=== PATIENT | female | born 1985 | race Two or more races ===

== ENCOUNTER 2019-06-25 18:59 | Inpatient (IN) | payer SELFPAY ==
[~2019-06-25] VITALS: Ht 160 cm; Wt 61.7 kg
[2019-06-25] MEDS ORDERED: ALBUTEROL 6.7GM HFA INHALER ORI ONE (19:30)
[2019-06-25] MEDS ORDERED: PREDNISONE 20MG TABLET PO ONE (19:30)
[2019-06-25] MEDS ORDERED: ACETAMINOPHEN 325MG TABLET PO ONE (19:30)
[2019-06-25] MEDS ORDERED: AZITHROMYCIN 500 MG TABLET PO ONE (20:15)
[2019-06-25] MEDS ORDERED: CEFTRIAXONE 1 G PREMIX 50 ML IV ONE (20:15)
[2019-06-25 21:52] LABS: BASOPHILS % 0.2 % (0.0-2.0); HEMATOCRIT. 39.5 % (36.0-48.0); HEMOGLOBIN. 13.7 g/dL (12.0-16.0); LYMPHOCYTES % 15.1 % (20.0-50.0); MEAN CORPUSCULAR HEMOGLOBIN 29.7 pg (28.0-32.0); MEAN CORPUSCULAR VOLUME 85.5 fL (81.0-99.0); MEAN PLATELET VOLUME 7.5 fl (7.4-10.4); MONOCYTES % 5.4 % (2.0-8.0); NEUTROPHILS % 79.3 % (40.0-76.0); PLATELET 274 x1000/uL (130-400); RED BLOOD CELL COUNT 4.62 mill/uL (4.2-5.4); RED CELL DISTRIBUTION WIDTH 13.7 % (11.6-14.6)
[2019-06-25 21:55] LABS: CHLORIDE 107 mEq/L (98-107)
[2019-06-25 22:20] LABS: D-DIMER 0.47 mg/L FEU (<0.50)
[2019-06-26 08:27] LABS: CLARITY URINE CLEAR (CLEAR); COLOR URINE DARK YELLOW (YELLOW); KETONES URINE 3+ (NEGATIVE); LEUKOCYTE ESTERASE URINE NEGATIVE (NEGATIVE); NITRITE URINE NEGATIVE (NEGATIVE); OCCULT BLOOD URINE 3+ (NEGATIVE); PH URINE 5.5 (4.5-8.0); PROTEIN URINE 2+ (NEGATIVE); SPECIFIC GRAVITY URINE 1.036 (1.005-1.030)
[2019-06-26] MEDS ORDERED: BENZONATATE 100MG CAPSULE PO PRN (09:15)
[2019-06-26] MEDS ORDERED: CEFTRIAXONE 1 G PREMIX 50 ML IV SCH ×2 (09:15→20:00)
[2019-06-26 10:54] VITALS: BP 133/78
[2019-06-26 12:00] VITALS: BP 108/60
[2019-06-26] MEDS ORDERED: AZIT250T12 MT (13:43)
[2019-06-26] MEDS: AZITHROMYCIN 250 MG TABLET PO SCH (14:18)
[2019-06-26 16:00] VITALS: BP 102/56
[2019-06-26] MEDS: ACETAMINOPHEN 325MG TABLET PO PRN ×2 (16:47→22:18)
[2019-06-26] MEDS: ENOXAPARIN 40MG/0.4ML SYR SUBCUT SCH (16:47)
[2019-06-26] MEDS: ALBUTEROL 6.7GM HFA INHALER ORI SCH (18:30)
[2019-06-26 19:54] LABS: HCG SCREEN NEGATIVE
[2019-06-26 20:00] VITALS: BP 125/70
[2019-06-26] MEDS: CEFTRIAXONE 1,000 MG in DEXTROSE 5% WATER 50 ML IV SCH (20:00)
[2019-06-27] VITALS: BP 94/61
[2019-06-27] MEDS: ALBUTEROL 6.7GM HFA INHALER ORI SCH ×4 (00:26→17:04)
[2019-06-27 04:00] VITALS: BP 102/68
[2019-06-27 08:00] VITALS: BP 97/59
[2019-06-27] MEDS: ENOXAPARIN 40MG/0.4ML SYR SUBCUT SCH (08:56)
[2019-06-27] MEDS: AZITHROMYCIN 250 MG TABLET PO SCH (08:56)
[2019-06-27] MEDS ORDERED: AZITHROMYCIN 500 MG TABLET PO SCH (09:00)
[2019-06-27 12:00] VITALS: BP 100/59
[2019-06-27] MEDS: ACETAMINOPHEN 325MG TABLET PO PRN (12:30)
[2019-06-27 16:00] VITALS: BP 94/63
[2019-06-27 20:00] VITALS: BP 97/59
[2019-06-27] MEDS: CEFTRIAXONE 1,000 MG in DEXTROSE 5% WATER 50 ML IV SCH (21:42)
[2019-06-28] VITALS: BP 98/58
[2019-06-28] MEDS: ALBUTEROL 6.7GM HFA INHALER ORI SCH ×2 (00:56→05:06)
[2019-06-28 04:00] VITALS: BP 100/60
[2019-06-28 06:54] LABS: BASOPHILS % 0.6 % (0.0-2.0); EOSINOPHILS % 0.4 % (0.0-5.0); HEMATOCRIT. 39.8 % (36.0-48.0); HEMOGLOBIN. 13.5 g/dL (12.0-16.0); LYMPHOCYTES % 36.4 % (20.0-50.0); MEAN CORPUSCULAR HEMOGLOBIN 28.8 pg (28.0-32.0); MONOCYTES % 12.9 % (2.0-8.0); NEUTROPHILS % 49.7 % (40.0-76.0); PLATELET 360 x1000/uL (130-400); RED BLOOD CELL COUNT 4.68 mill/uL (4.2-5.4); RED CELL DISTRIBUTION WIDTH 13.6 % (11.6-14.6)
[2019-06-28 07:01] LABS: CHLORIDE 111 mEq/L (98-107)
[2019-06-28 08:00] VITALS: BP 86/56
[2019-06-28] MEDS: ENOXAPARIN 40MG/0.4ML SYR SUBCUT SCH (09:37)
[2019-06-28] MEDS: AZITHROMYCIN 250 MG TABLET PO SCH (09:37)
[2019-06-28 12:00] VITALS: BP 100/65
[2019-06-28] MEDS ORDERED: POTASSIUM CHLORIDE 20MEQ TABLET SR PO SCH (14:45)
[2019-06-28 15:18] VITALS: BP 100/65
[2019-06-28] MEDS ORDERED: AZIT250T12 MT (15:18)
[2019-06-28] MEDS ORDERED: ALBU18HF2 IH (15:45)
== END 2019-06-28 15:55 | disposition home or self-care (01) | DRG 137 ==
LOC: ER 18:59 → 7WST 21:32 → EDBEDREQ 21:57 → EDBEDREQTM 21:57 → ENRESERV 06-26 07:28
PROVIDERS: ADMIT Internal Medicine; ATTEND Internal Medicine
DX: U07.1 COVID-19 (principal); A41.89 Other specified sepsis; J96.00 Acute respiratory failure, unspecified whether with hypoxia or hypercapnia; E87.6 Hypokalemia; B97.89 Other viral agents as the cause of diseases classified elsewhere; J20.8 Acute bronchitis due to other specified organisms; J12.89 Other viral pneumonia
CPT/HCPCS: 36415; 71045; 80048; 80053; 81003; 83615; 84145; 84703; 85025; 85379; 85384; 87635; 87804; 99285; J0696; J1650; J7060; J7512